=== PATIENT | female | born 1950 | race Native Hawaiian/Other Pacific Islander ===

== ENCOUNTER 2016-08-25 15:11 | Emergency (ER) | payer MEDICAID ==
[~2016-08-25] VITALS: Ht 162.6 cm; Wt 63.6 kg
[~2016-08-25 15:11] MED LIST: ALPR.25 PO; AMLO10 PO; ATEN-102 PO; GLIP5 PO; GLUCTAB PO; MOBI7.5T PO
[2016-08-25 15:13] VITALS: BP 128/82; PULSE 108; RESP 15; TEMP 97.6; O2SAT 98
[2016-08-25] MEDS ORDERED: TETANUS/DIPHTHERIA TOXOID ADULT 0.5 ML VIAL IM ONE (15:45)
[2016-08-25] MEDS ORDERED: CEPH500T PO (15:45)
[2016-08-25] MEDS ORDERED: LIDOCAINE 1%/EPINEPHrine 1:100,000 SOLN 20 ML VIAL INFIL ONE (15:45)
--- NOTE | 2016-08-25 15:45 | PD ---
HPI Chief Complaint: Laceration/Skin Injury Time Seen by Provider: 15:41 Travel History International Travel<30 days: No Contact w/Intl Traveler<30days: No Traveled to known affect area: No History of Present Illness HPI Patient is a 66-year-old diabetic female presenting with right foot laceration. One hour prior to exam she dropped a ceramic coffee mug which broke and she incidentally stepped into a fragment with the lateral side of her right foot. She reports bleeding, clean the wound and applied pressure which has stopped. She is not on anticoagulants. She denies a history of diabetic neuropathy and thinks her diabetes is fairly well controlled. She denies any weakness or paresthesia. She denies foreign body sensation. Last tetanus vaccine greater than 5 years. PFSH Past Medical History Heart Rhythm Problems: No Cardiac Catheterization: No Cardiovascular Problems: Yes (HTN) High Cholesterol: No Congestive Heart Failure: No Diabetes: Yes Diminished Hearing: No GERD: Yes Hypertension: Yes Kidney Stones: Yes Past Surgical History Appendectomy: Yes Cholecystectomy: Yes Coronary Artery Bypass Graft: No Gynecologic Surgery: Yes (SURGERY FOR TILTED UTERUS/OVARIES) Social History Alcohol Use: No Tobacco Use: No Substance Use: No Allergies-Medications (Allergen,Severity, Reaction): Coded Allergies: Codeine (Verified Allergy, Severe, "DIZZY", 08/25/16) Reported Meds & Prescriptions Reported Meds & Active Scripts Active Reported Glipizide 10 Mg Tab 10 Mg PO BIDAC Take 30 minutes before a meal Amlodipine (Amlodipine Besylate) 5 Mg Tab 5 Mg PO DAILY Lisinopril 5 Mg Tab 5 Mg PO DAILY Metformin (Metformin HCl) 850 Mg Tab 850 Mg PO TIDPC With meals Xanax 0.25 Mg (Alprazolam) 0.25 Mg Tab 0.25 Mg PO Q8HPRN NEEDED FOR ANXIETY Atenolol 50 Mg Tab 50 Mg PO DAILY Review of Systems Musculoskeletal: No: Limited ROM Skin: Positive Other (see the history of present illness) Neurologic: No: Weakness, Focal Abnormalities, Paresthesia, Sensory Disturbance Physical Exam Narrative GENERAL: Well-developed and well-nourished adult female in no acute distress. SKIN: Warm and dry. Good turgor without tenting. HEAD: Normocephalic. CARDIOVASCULAR: Regular rate and rhythm without murmurs, rubs, clicks or gallops. Dorsalis pedis and posterior tibial pulses 2+ bilaterally. Capillary refill less than 2 seconds distal tip of all toes of right foot. No pedal edema. RESPIRATORY: Clear to auscultation bilaterally with symmetrical rise and fall, no distress or use of accessory muscles. MUSCULOSKELETAL: Patient has a curvilinear laceration over the lateral aspect of the distal right foot. Approximately 3 cm in length, curvilinear. Shallow, bases visible. No tendon or bone is visible. Patient can freely move all 5 toes in flexion and extension on the right foot. Patient freely moving all four extremities spontaneously. Extremities without clubbing, cyanosis, or edema. No obvious deformities. NEUROLOGIC: CN II-XII grossly intact. Awake and alert. Motor grossly within normal limits. Sensation intact to the distal tip of all 5 toes of right foot. Normal speech. PSYCHIATRIC: Appropriate mood and affect; insight and judgment normal. Data Data Last Documented VS Vital Signs Date Time Temp Pulse Resp B/P Pulse Ox O2 Delivery O2 Flow Rate FiO2 08/25/16 15:13 97.6 108 15 128/82 98 Orders Tetanus/Diphtheria Tox Adult (Tetanus/Di (08/25/16 15:45) Cefazolin Inj (Ancef Inj) (08/25/16 15:45) Lidocai-Epi 1%-1:100,000 Inj (Xylocaine- (08/25/16 15:45) Foot, Complete ([id number]) (08/25/16 15:39) Splint Or Brace Apply/Monitor (08/25/16 17:49) MDM Medical Decision Making Medical Screen Exam Complete: Yes Emergency Medical Condition: Yes Differential Diagnosis Foot laceration versus wound foreign body versus neurovascular injury versus tendon injury versus avulsion injury Narrative Course Patient is a 66-year-old female with a history of well-controlled diabetes presenting with a right foot laceration. This is from a ceramic mug. This is relatively superficial, no evidence of neurovascular injury. No evidence of tendon injury. Tetanus vaccine is updated was given Ancef 500 mg IM. X-ray shows no fractures or foreign bodies. Repaired laceration per attached procedure narrative. Patient will be given Keflex for prophylaxis given her diabetes and the location. As this is not on the plantar surface do not believe Cipro is indicated at this time.See discharge paperwork for further instructions. The plan was discussed with the patient who acknowledged their understanding and agreement. Reinforced the follow-up with primary care is critically important. Patient instructed on emergent conditions that should prompt return to ED. Procedures Procedure Narrative LACERATION LOCATION: Right dorsal lateral foot LENGTH: 3.5 cm SHAPE: Curvilinear NUMBER OF STITCHES/KING: 8 REPAIR: The area of the laceration was prepped with Betadine and sterilely draped. The laceration was infiltrated with 4 cc of 1 %percent lidocaine with. The wound was copiously irrigated and explored without evidence of foreign body, tendon injury or neurovascular injury. The wound was closed using 4-0 Ethilon. This was a single layer repair. A sterile dressing was applied. A postop shoe was given to the patient. The patient was advised to keep the dressing clean and dry. Patient tolerated the procedure well. Diagnosis Primary Impression: Laceration of foot Qualified Code: S91.311A - Laceration of foot, right, initial encounter Patient Instructions: General Instructions, Laceration (ED) Additional Instructions: Keep bandage on for 24 hours then change daily When changing bandage wash area with soap and water Avoid swimming or submerging wound in any water(bath, terrell, pool, ocean, etc) Avoid heavy weightbearing or repetitive motions with the foot until wound heals Take Tylenol or ibuprofen for pain Take antibiotic as prescribed Follow-up with PCP in N2 to 3 days, sutures should be removed in 10-14 days Return to the ED for any acute worsening of symptoms including swelling, warmth , spreading redness, pustular drainage, fever Med/Other Pt SpecificInfo: Prescription(s) given Disposition: 01 DISCHARGE HOME Condition: Stable Dl aClixto III Aug 25, 2016 15:45
[2016-08-25] MEDS ORDERED: LISI-519 PO (15:51)
[2016-08-25] MEDS ORDERED: GLIP10TA6 PO (15:51)
[2016-08-25] MEDS ORDERED: METF850T PO (15:51)
[2016-08-25] MEDS ORDERED: AMLO5TAB2 PO (15:51)
--- NOTE | 2016-08-25 16:54 | RADRPT ---
EXAM DATE/TIME: 08/25/2016 16:18 [facility] COMPARISON: No previous studies available for comparison. INDICATIONS : Laceration to lateral right foot MEDICAL HISTORY : None. SURGICAL HISTORY : None. ENCOUNTER: Initial ACUITY: 1 day PAIN SCORE: 9/10 LOCATION: Right lateral foot FINDINGS: The bones are osteopenic. There is joint space narrowing at the 1st MTP joint. No fracture is seen. There is a calcaneal spur at the plantar aponeurosis attachment site. CONCLUSION: Chronic changes as described above. An acute abnormality is not seen. Dl Rosa MD on August 25, 2016 at 16:27 Board Certified Radiologist. This report was verified electronically.
== END 2016-08-25 18:26 | disposition home or self-care (01) ==
LOC: NEPB 15:11
DX: S91.311A Laceration without foreign body, right foot, initial encounter (principal); E11.9 Type 2 diabetes mellitus without complications; I10 Essential (primary) hypertension; W45.8XXA Other foreign body or object entering through skin, initial encounter; Z79.84 Long term (current) use of oral hypoglycemic drugs; Z23 Encounter for immunization
CPT/HCPCS: 12002; 73630; 90471; 90714; 96372; 99283; J0690; L3260

== ENCOUNTER 2016-09-12 16:47 | Emergency (ER) | payer MEDICAID ==
[~2016-09-12] VITALS: Ht 162.6 cm; Wt 63.0 kg
[~2016-09-12 16:47] MED LIST changes: -AMLO10 PO; +AMLO5TAB2 PO; +GLIP10TA6 PO; -GLIP5 PO; -GLUCTAB PO; +LISI-519 PO; +METF850T PO; -MOBI7.5T PO
[2016-09-12 17:02] VITALS: BP 155/84; PULSE 65; RESP 18; TEMP 98.5; O2SAT 100
--- NOTE | 2016-09-12 17:17 | PD ---
HPI Chief Complaint: Laceration/Skin Injury Time Seen by Provider: 17:17 Travel History International Travel<30 days: No Contact w/Intl Traveler<30days: No Traveled to known affect area: No History of Present Illness HPI Patient is a 66-year-old female presenting for suture removal. On August 25 this patient suffered a laceration to the right distal lateral foot. 8 sutures were placed by myself at that visit. The patient has seen her PCP in follow-up who states it was healing well and she denies any complaints including fever, pain, swelling, discharge or bleeding. No weakness or paresthesia in the digit. No loss of range of motion. PFSH Past Medical History Heart Rhythm Problems: No Cardiac Catheterization: No Cardiovascular Problems: Yes (HTN) High Cholesterol: No Congestive Heart Failure: No Diabetes: Yes Patient Takes Glucophage: Yes Diminished Hearing: No GERD: Yes Heparin Induced Thrombocytopen: No Hypertension: Yes Kidney Stones: Yes Tetanus Vaccination: < 5 Years ?: Not Past Surgical History Appendectomy: Yes Cholecystectomy: Yes Coronary Artery Bypass Graft: No Gynecologic Surgery: Yes (SURGERY FOR TILTED UTERUS/OVARIES) Family History Family Myocardial Infarction: Yes (FATHER) Social History Alcohol Use: No Tobacco Use: No Substance Use: No Allergies-Medications (Allergen,Severity, Reaction): Coded Allergies: Codeine (Verified Allergy, Severe, "DIZZY", 09/12/16) Reported Meds & Prescriptions Reported Meds & Active Scripts Active Reported Glipizide 10 Mg Tab 10 Mg PO BIDAC Take 30 minutes before a meal Amlodipine (Amlodipine Besylate) 5 Mg Tab 5 Mg PO DAILY Lisinopril 5 Mg Tab 5 Mg PO DAILY Metformin (Metformin HCl) 850 Mg Tab 850 Mg PO TIDPC With meals Xanax 0.25 Mg (Alprazolam) 0.25 Mg Tab 0.25 Mg PO Q8HPRN NEEDED FOR ANXIETY Atenolol 50 Mg Tab 50 Mg PO DAILY Review of Systems General / Constitutional: No: Fever Musculoskeletal: No: Limited ROM Skin: Positive Other (healing laceration per history of present illness) Neurologic: No: Weakness, Focal Abnormalities, Paresthesia, Sensory Disturbance Physical Exam Narrative GENERAL: Well-developed and well-nourished adult female in no acute distress. SKIN: Warm and dry. Good turgor without tenting. HEAD: Normocephalic and atraumatic. EYES: PERRL bilaterally, 5mm. EOMI bilaterally. No injection or icterus present. No proptosis. Lids without edema or erythema. CARDIOVASCULAR: Dorsalis pedis and posterior tibial pulses 2+ bilaterally. Capillary refill less than 2 seconds distal tip of the right fifth toe. Tip No pedal edema. RESPIRATORY: No distress or use of accessory muscles. MUSCULOSKELETAL: Well-healed curvilinear laceration to the right distal lateral foot at the base of fifth toe. All [address] No evidence of dehiscence or infection. No drainage, erythema or warmth. Normal range of motion in the right fifth toe. No gait disturbances. Patient freely moving all four extremities spontaneously. Extremities without clubbing, cyanosis, or edema. No obvious deformities. NEUROLOGIC: CN II-XII grossly intact. Awake and alert. Motor grossly within normal limits. Normal speech. PSYCHIATRIC: Appropriate mood and affect; insight and judgment normal. Data Data Last Documented VS Vital Signs Date Time Temp Pulse Resp B/P Pulse Ox O2 Delivery O2 Flow Rate FiO2 09/12/16 17:02 98.5 65 18 155/84 100 MDM Medical Decision Making Medical Screen Exam Complete: Yes Emergency Medical Condition: Yes Differential Diagnosis Suture removal versus wound dehiscence versus wound infection Narrative Course Patient is a 66-year-old female presenting for suture removal. These were placed on the nd by myself. She has seen her PCP in follow-up and states that she has plans with the wound and was told it has been healing well. On my exam there is evidence of dehiscence or infection. No range of motion loss in the digit and she is neurovascularly intact. All sutures were removed without complication.See discharge paperwork for further instructions. The plan was discussed with the patient who acknowledged their understanding and agreement. Reinforced the follow-up with primary care is critically important. Patient instructed on emergent conditions that should prompt return to ED. Diagnosis Primary Impression: Visit for suture removal Patient Instructions: General Instructions Disposition: 01 DISCHARGE HOME Condition: Stable Dl Calixto III Sep 12, 2016 17:17
== END 2016-09-12 17:29 | disposition home or self-care (01) ==
LOC: PHEFT 16:47
DX: Z48.02 Encounter for removal of sutures (principal)
CPT/HCPCS: 99281